=== PATIENT | female | born 1940 | race Caucasian/White ===

== ENCOUNTER → 2017-11-10 | Day surgery (SDC) | payer OTHER ==
[~2017-11-10] VITALS: Ht 154.9 cm; Wt 61.0 kg
[~2017-11-10] MED LIST: ACETAMINOPHEN 325 MG TAB PO PRN; AMLO-114 PO; ASPEC81 PO; ATEN50TA8 PO; ATROPINE SULFATE 0.1 MG/ML 5ML SYR IV PRN; ATV5 PO; CLX/20 PO; CLX20 PO; DC ALL ANTICOAGULANTS ONE; FENTANYL CITRATE INJ 50 MCG/1 ML 2 ML VIAL ONE; FRS/40 PO; METO50TA8 PO; MIDAZOLAM HCL 1 MG/ML 2ML VIAL ONE; NTRGSL/4 UT; ONDANSETRON INJ 2 MG/ML 2 ML VIAL IV PRN; POTA20TA16 PO; PRAV20TA PO; SODIUM CHLORIDE 0.9% 1000ML 1,000 ML IV SCH; SODIUM CHLORIDE 0.9% 1000ML 250 ML IV PRN; TYLUNK; WARF5TAB90 PO
[2017-11-10 07:33] VITALS: BP 143/66; PULSE 89; TEMP 36.6; O2SAT 92; Ht 154.9 cm; Wt 61.0 kg
--- NOTE | 2017-11-10 08:01 | History & Physical Bridge Note ---
H&P Re-Evaluation Bridge Note: I have examined the patient, reviewed the History & Physical and in the interval since the performance of the History & Physical I have noted the following changes of clinical significance: No changes noted
--- NOTE | 2017-11-10 08:03 | Pre Sedation Assessment ---
Pre Sedation Assessment General Date of Sedation: Nov 10, 2017. Vital Signs Past 12 Hours Date Time Temp Pulse Resp B/P (MAP) Pulse Ox O2 Delivery O2 Flow Rate FiO2 11/10/17 07:33 36.6 89 20 143/66 (91) 92 Room Air Review Cardiovascular: + systolic murmur, + irregularly irregular Lungs: lungs clear Pre-Sedation Airway Assessment Smoking Status: Never Smoker Hx of Sleep Apnea: No Short Thick Neck: No Thyro-mental Distance: > 3 Finger Breadths Oral Cavity: Dentures Mallampati Classification: Class III ASA Classification: Class III NPO Status Date of Last Intake of Fluids: Nov 09, 2017 Time of Last Intake of Fluids: 1999 Date of Last Intake of Solids: Nov 09, 2017 Time of Last Intake of Solids: 1999 Procedure Planning Contraindications for Sedation: None Current Medications Reviewed: Yes Notes The planned sedation has been discussed with the patient. Informed Consent was obtained. I have identified the patient, determined the appropriateness of sedation and have assessed the patient immediately prior to the procedure. All medicine(s) and interventions are by my order.
--- NOTE | 2017-11-10 09:24 | Post Sedation Assessment ---
Post Sedation Assessment General Date of Sedation Nov 10, 2017. Vital Signs: Vital Signs Past 12 Hours Date Time Temp Pulse Resp B/P (MAP) Pulse Ox O2 Delivery O2 Flow Rate FiO2 11/10/17 07:33 36.6 89 20 143/66 (91) 92 Room Air Post Procedure Recovery Score Activity: (2) Moves 4 extremities * Respiration: (2) Deep breath/cough Circulation: (2) +/-20% PreAnes Value Consciousness: (2) Fully Awake Oxygen Saturation: (2) > 92% On Room Air Post Anesthesia Score: 10 Discharge Sedation Level of Care: Fast Track Phase II Post Sedation Plan On clinical assessment, the patient appears to have tolerated the sedation without complications. Patient is recovering as anticipated. Patient will continue to be monitored by nursing and may be discharged when sedation discharge criteria are met per below protocol. Upon Completions of procedure and additional 15 minutes continue every 5 minute vital signs and the P.A.R. score; then discharge to a Phase I or Fast Track to Phase II per the following guidelines: * Discharge Patient to appropriate Phase II area if PAR is 8 or greater or return to pre- procedure baseline. The post - procedure orders will be as directed. * If PAR score is less than 8 or not return to pre-procedure baseline then patient will follow Phase I monitoring till PAR is reached for Phase II. The Phase I may be done in procedure room or may call to secure a Phase I area. * If naloxone or flumazenil are used for reversal, hold in Phase I for an additional 60 -120 minutes before discharge to Phase II. Please call the Sedation Physician to re-evaluate and complete post-note for discharge to Phase II area. Do NOT discharge from procedure sedation or Phase 1 until post- sedation evaluation note is complete by procedure /sedation MD Sedation Discharge Instructions to be given to the patient at discharge to home.
--- NOTE | 2017-11-10 09:30 | Discharge Instructions ---
Discharge Instructions Procedure Procedure Date: Nov 10, 2017. Reason for Visit: Mitral Valve Deficiency *Dr Roth*. Discharge Discharge Date: Nov 10, 2017. Discharge Diagnosis: same Last Recorded Wt (Kilograms): 61 Anesthesia Post Anesthesia Instructions: If you have had General Anesthesia or IV Sedation: * Do not drive today. * Resume driving when surgeon permits. * Do not make important decisions or sign legal documents today. * Call surgeon for: 1. Temperature elevations greater than 101 degrees F. 2. Uncontrollable pain. 3. Excessive bleeding. 4. Persistent nausea and vomiting. 5. Medication intolerance (nausea, vomiting or rash). * For nausea and vomiting use only clear liquids such as: tea, soda, bouillon until nausea subsides, then gradually increase diet as tolerated. * If you have any concerns or questions, call your surgeon's office. If physician is unavailable and it is an emergency, call 911 or go to the nearest emergency room. Instructions Activity Recommendations: no limitations Recommended Home Diet: resume previous diet Allergies: Coded Allergies: Cephalosporins (Verified Allergy, Severe, TONGUE SWELLING CAUSED BY KEFLEX , 10/20/09) Lisinopril (Verified Allergy, Mild, CHEST PAIN, 10/20/09) Azithromycin (Unverified Allergy, Unknown, itchy, 11/10/17) Provider Instructions ACTIVITY RECOMMENDATIONS: It is common to feel weak and fatigue for a few days. * Do not drive or operate any motorized equipment for the next three days. * Limit stair usage (2 or 3 trips a day only) for the next three days. * Do not lift anything heavier than 10 pounds for the next three days. * Do not engage in vigorous exercise or any sports for the next five days. * You may shower the day after your procedure, but do not immerse the area for three days. Cleanse the site gently with soap and water. SPECIAL CARE INSTRUCTIONS: * You may replace the pressure dressing or band-aid the morning after the procedure. * After your procedure, it is normal to have a small bruise or small lump at the site. Examine your site daily for any change in the bruise or lump, redness, swelling, drainage or numbness. Notify your doctor if any change. BLEEDING: * If there is a small amount of bleeding at the site, lie down and apply firm pressure with a clean cloth for ten minutes. When the bleeding stops, lie quietly keeping the procedure limb straight for six hours. Notify your doctor as soon as possible. * If the bleeding does not stop after ten minutes or if there is a large amount of bleeding or spurting, call 911 immediately. Continue to lie down and hold firm pressure until help arrives. SKIN IRRITATION: * You may experience some redness and/or swelling in the area where radiation was administered. If any skin irritation occurs, please contact your family physician. FOLLOW UP VISIT: Keep any scheduled doctor appointments. Follow Up Follow-up with: November 14, 2017 11:[address] Ernie Ballesteros [facility] Recommendations: Call your doctor if: * Temperature above 101 degrees * Pain not relieved by pain medicine ordered * There is increased drainage or redness from any incision * You have any unanswered questions or concerns. Your Doctors Instructions noted above were prepared by provider Mauro Roth. Patient Signature Section: Patient Instructions Signature Page Vonda Maldonado Patient (or Guardian) Signature/Date: I have read and understand the instructions given to me by my caregivers. Caregiver/RN/Doctor Signature/Date: The above-named patient and/or guardian has received patient instructions on this date. + Original Patient Signature Page (only) stays with chart. Please make copy for patient.
--- NOTE | 2017-11-10 09:56 | Procedure Note ---
Cardiac Cath Report Procedure: 1. Right heart catheterization 2. Left heart catheterization 3. Coronary angiography 4. Aortography 5. Left ventriculography History: This is a 77-year-old [facility] female patient of Dr. Klein's as well as Dr. Gomes'tuan who is here today for a right and left heart catheterization. She has a history of mitral valve disease that dates back to 2016. Recently she presented to [facility] with congestive heart failure and a large right pleural effusion. She has chronic atrial fibrillation and has been off her warfarin for approximately 5 days. Her INR today is 1.2. She has been seen by Dr. Klein who is planning mitral valve surgery. Procedure summary: After informed consent was obtained the patient was taken to the cardiac catheterization lab where axis was obtained using a retrograde solider technique from the right femoral artery and vein. A [place] catheter was utilized for right heart pressures and cardiac outputs. Preformed 5 Romanian diagnostic catheters were utilized the coronary angiograms. A 5 Romanian pigtail catheter was utilized for the left ventriculogram and aortogram. Following the procedure the patient had the arterial site closed with the minks device and was returned to the holding area the Tie Binder in stable condition. Hemodynamic data: Right atrial pressure: Mean 11 mmHg Right ventricular pressure: 46 over 10 mmHg Pulmonary capillary wedge pressure: Mean 25 mmHg with a large V wave Pulmonary artery pressure: 48/24 mmHg Left ventricular pressure: 150 over 7 mmHg Central aortic pressure: 154/62 mmHg Cardiac output by thermal dilution 4.5 L/m Cardiac output by Khai 4.5 L/m Gradient across the aortic valve 0 Gradient across the mitral valve 12.7 mmHg with the estimated mitral valve area 1.34 cm Coronary angiography: Selective injections of the left coronary artery reveal a small AV groove left circumflex, the LAD extends around the apex of the heart. Both the left circumflex and LAD systems are widely patent. Selective injections of the right coronary artery revealed to be hyperdominant. The large size the right coronary artery certainly could explain the small AV groove left circumflex. Right coronary artery is widely patent. Additional exploratory injections found no anomalous left circumflex or dual left main trunk. Left ventriculogram: The left ventricle was of normal size with normal systolic function. The LVEDP was 7. Aortogram: The aortogram was completed to assess for an anomalous left circumflex artery. We only found a left coronary artery and a right coronary artery. There was no dual ostium left main trunk or anomalous left circumflex artery. Summary: The patient has mitral valve disease with a combination of mitral stenosis and mitral regurgitation. The coronary anatomy is unusual in that the left circumflex artery consist only of an AV groove portion with the right coronary artery being hyperdominant. The coronary anatomy is widely patent. Left ventricular systolic function is normal. Recommendations: The patient has a follow-up appointment with Dr. Klein on November 14.
--- NOTE | 2017-11-10 10:15 | Cardiac Catheterization ---
Procedure Note Procedure Date Nov 10, 2017. Pre-Procedure Diagnosis Valvular Disease AUC Score 9 Post-Procedure Diagnosis Normal Coronary Arteries Procedure(s) Performed Coronary Angiography, Left Heart Cath, Right Heart Cath, LV Angiography, Aortography Billing Supervisor Dr. Roth Production Control Supervisor(s) None Estimated Blood Loss None Medication(s) Versed, Lidocaine 1% Summary of Findings See dictated report Hemodynamics Rest Ao: 154/62 Final Ao: 145/70 LV: 146/5 Recommendations valve replacement Specimens None Radiation Exposure (mGy) 594 Contrast (mls) 156 Procedural Complication(s) None Disposition Home Extension Agent Holding/Recovery ACC Data Cardiac Status Clinical evaluation leading to the procedure CAD Presntation: No Sxs, no angina Anginal Classification: No symptoms Heart Failure: Yes, NYHA Class: CCS III Cardiogenic Shock w/in 24Hrs: No Cardiac Arrest w/in 24Hrs: No Imaging studies past 6 months: Yes Stress studies past 6 months: No Coronary Anatomy Dominant: Right Left Main (% Stenosis): Normal LAD (% Stenosis): Normal Circumflex (% Stenosis): Normal RCA (% Stenosis): Normal Left Ventricular Angiography EF (%): 60 Mitral Regurgitation: 2+ Diagnostic Status: Elective Closure Device Percutaneous Entry Location: Femoral Closure Device: Mynx Recommendations: valve replacement
[2017-11-10 14:00] VITALS: BP 118/66; PULSE 84; O2SAT 95
== END | disposition home or self-care (01) ==
LOC: C.CATH 07:30
PROVIDERS: ATTEND Internal Medicine Interventional Cardiology
DX: I34.2 Nonrheumatic mitral (valve) stenosis (principal); R06.09 Other forms of dyspnea; I48.91 Unspecified atrial fibrillation; I50.9 Heart failure, unspecified; Z79.01 Long term (current) use of anticoagulants; I10 Essential (primary) hypertension; E11.9 Type 2 diabetes mellitus without complications; J45.909 Unspecified asthma, uncomplicated; E78.5 Hyperlipidemia, unspecified; Z90.710 Acquired absence of both cervix and uterus; Z82.49 Family history of ischemic heart disease and other diseases of the circulatory system